=== PATIENT | female | born 1980 | race Caucasian/White ===

== ENCOUNTER → 2019-08-02 | Outpatient (CLI) | payer BC ==
[~2019-08-02] MED LIST: CARI350 PO; CEPH500 PO; ESCI10; HYDACE5 PO; Mobic15 MG PO; RXHYDACE PO
[2019-08-05 11:10] LABS: HPV 16 Negative (Negative); HPV 18 Negative (Negative); HPV OTHER HR TYPES Negative (Negative)
== END ==
LOC: LAB SHORT 10:56 → LAB 10:56
PROVIDERS: Obstetrics & Gynecology
DX: Z01.419 Encounter for gynecological examination (general) (routine) without abnormal findings (principal)
CPT/HCPCS: 87624; G0123

== ENCOUNTER 2019-11-30 09:42 | Day surgery (SDC) | payer BC ==
[~2019-11-30] VITALS: Ht 170.2 cm; Wt 120.5 kg
--- NOTE | 2019-11-30 12:21 | NUR ---
11/30/19 1221 EDDIE KINCAID PATIENT TO STEPDOWN. ATTEMPTED TO SIT PATIENT UP IN BED AND PATIENT BECAME NAUSEATED AND PALE. PATIENT DID NOT VOMIT AND WAS BETTER AFTER BEING LAID FLAT. PT RECEIVED REGLAN IV IN PACU. TOLERATING SIPS OF [place]AURA MIST. REPORTS NAUSEA IS BETTER AND DENIES PAIN IN SHOULDER, "FEELS HEAVY".
--- NOTE | 2019-11-30 13:07 | NUR ---
11/30/19 1307 Dipika Nava LATE ENTRY: 1 MG OF EPI ADDED TO FIRST 3 BAGS OF LR FOR IRRIGATION.
== END 2019-11-30 13:00 | disposition home or self-care (01) ==
LOC: ORSCSDS 09:42
PROVIDERS: Orthopaedic Surgery
PROC: 0LQ14ZZ Repair Right Shoulder Tendon, Percutaneous Endoscopic Approach (ICD-10-PCS; principal; 2019-11-30 11:00)
PROC: 0RNJ4ZZ Release Right Shoulder Joint, Percutaneous Endoscopic Approach (ICD-10-PCS; principal; 2019-11-30 11:00)
PROC: 0LS14ZZ Reposition Right Shoulder Tendon, Percutaneous Endoscopic Approach (ICD-10-PCS; principal; 2019-11-30 11:00)
PROC: 0LU14KZ Supplement Right Shoulder Tendon with Nonautologous Tissue Substitute, Percutaneous Endoscopic Approach (ICD-10-PCS; principal; 2019-11-30 11:00)
DX: M75.111 Incomplete rotator cuff tear or rupture of right shoulder, not specified as traumatic (principal); S46.101A Unspecified injury of muscle, fascia and tendon of long head of biceps, right arm, initial encounter; M75.41 Impingement syndrome of right shoulder; E66.01 Morbid (severe) obesity due to excess calories; Z68.41 Body mass index [BMI] 40.0-44.9, adult
CPT/HCPCS: C1713; J0171; J0690; J1100; J1885; J2250; J2405; J2704; J2765; J3010; J7120

== ENCOUNTER 2020-03-21 20:41 | Emergency (ER) | payer BC ==
[~2020-03-21] VITALS: Ht 170.2 cm; Wt 113.8 kg
== END 2020-03-21 22:53 | disposition home or self-care (01) ==
LOC: ER 20:41
DX: S61.213A Laceration without foreign body of left middle finger without damage to nail, initial encounter (principal); Z87.891 Personal history of nicotine dependence; S61.211A Laceration without foreign body of left index finger without damage to nail, initial encounter; W26.0XXA Contact with knife, initial encounter; Y93.G1 Activity, food preparation and clean up
CPT/HCPCS: 12001; 99282

== ENCOUNTER 2021-10-17 08:07 | Day surgery (SDC) | payer BC | END 2021-10-17 16:16 | disposition home or self-care (01) | LOC: ATC 08:07 | DX: D50.9 Iron deficiency anemia, unspecified (principal) | CPT/HCPCS: 96365; J2916 ==

== ENCOUNTER → 2021-11-27 | Outpatient (CLI) | payer BC ==
[2021-11-27 13:55] LABS: Stool Occult Blood Guaiac 1 Neg (Neg)
== END | disposition home or self-care (01) ==
LOC: LAB SHORT 07:10
PROVIDERS: Family Medicine
DX: D50.9 Iron deficiency anemia, unspecified (principal)
CPT/HCPCS: 82270